=== PATIENT | female | born 1990 | race Caucasian/White ===

== ENCOUNTER 2021-08-30 08:59 | Emergency (ER) | payer BC ==
[2021-08-30 09:03] VITALS: TEMP 98.1
[2021-08-30] MEDS ORDERED: SODIUM CHLORIDE 0.9% 1,000 ML IV STA (10:32)
[2021-08-30 11:10] LABS: Basophils % (A) 0 %; Eosinophils % (A) 1 %; HCT 40.2 % (34.0-46.0); HGB 13.7 gm/dL (11.4-16.0); Lymphocytes # (A) 1.1 k/uL (1.0-4.8); Lymphocytes % (A) 17 %; MCH 30.4 pg (25.0-35.0); MCHC 34.2 g/dL (31.0-37.0); Monocytes # (A) 0.3 k/uL (0-1.0); Monocytes % (A) 4 %; Neutrophils # (A) 4.8 k/uL (1.3-7.7); Neutrophils % (A) 76 %; Platelet Count 188 k/uL (150-450); RBC 4.52 m/uL (3.80-5.40); RDW 12.3 % (11.5-15.5); WBC 6.3 k/uL (3.8-10.6)
[2021-08-30 11:24] LABS: ALT 18 U/L (4-34); AST 23 U/L (14-36); African American GFR (CKD) >90 (>60 ml/min/1.73 sqM); Albumin 4.8 g/dL (3.5-5.0); Alkaline Phosphatase 46 U/L (38-126); Anion Gap 12 mmol/L; Blood Urea Nitrogen 15 mg/dL (7-17); Calcium 9.4 mg/dL (8.4-10.2); Carbon Dioxide 23 mmol/L (22-30); Chloride 103 mmol/L (98-107); Glucose 93 mg/dL (74-99); Non-African American GFR(CKD) >90 (>60 ml/min/1.73 sqM); Potassium 4.2 mmol/L (3.5-5.1); Sodium 138 mmol/L (137-145); Total Bilirubin 0.8 mg/dL (0.2-1.3); Total Protein 7.6 g/dL (6.3-8.2)
[2021-08-30 11:32] LABS: Prothrombin Time 10.6 sec (9.0-12.0)
[2021-08-30 12:22] LABS: Appearance,Urine Clear (Clear); Bilirubin,Urine Negative (Negative); Blood,Urine Negative (Negative); Color,Urine Light Yellow; Glucose,Urine (UA) Negative (Negative); Ketones,Urine 1+ (Negative); Leukocyte Esterase,Urine Negative (Negative); Nitrite,Urine Negative (Negative); Protein,Urine Negative (Negative); Specific Gravity,Urine 1.009 (1.001-1.035); Urobilinogen,Urine <2.0 mg/dL (<2.0)
--- NOTE | 2021-08-30 12:27 | ED ---
General Adult HPI - General Chief complaint: Neuro Symptoms/Deficit Stated complaint: Numbness, blurred vision Time Seen by Provider: 08/30/21 10:21 Source: patient Mode of arrival: wheelchair Limitations: no limitations - History of Present Illness Initial comments: Patient is a 31-year-old female presenting with chief complaint of blurred vision, and numbness to the lips and left arm. Patient states that about 8:30 this morning she had centralized vision blurriness that lasted for about 25 minutes. After the vision blurriness subsided she began having perioral numbness and left arm numbness. Patient states it has been gradually improving and at the time of examination normal sensation has returned. Patient states that her family is a history of MS. She took a test at home yesterday which was negative. Patient states that she removed a tick from her foot 3 days ago, she states it was attached for less than 24 hours. She denies any chest pain, shortness of breath, fever, chills, nausea, vomiting, dizziness, headache injury, new medications/food/products, recent illness, rash, body aches, URI like symptoms, abdominal pain, diarrhea, hematochezia, dysuria, hematuria, urgency, frequency. - Related Data Home Medications Medication Instructions Recorded Confirmed No Known Home Medications 08/30/21 08/30/21 Allergies Allergy/AdvReac Type Severity Reaction Status Date / Time No Known Allergies Allergy Verified 08/30/21 13:20 Review of Systems ROS Statement: Those systems with pertinent positive or pertinent negative responses have been documented in the HPI. ROS Other: All systems not noted in ROS Statement are negative. Past Medical History Past Medical History: No Reported History History of Any Multi-Drug Resistant Organisms: None Reported Past Surgical History: No Surgical Hx Reported Past Psychological History: No Psychological Hx Reported Smoking Status: Never smoker Past Alcohol Use History: Occasional Past Drug Use History: None Reported General Exam Limitations: no limitations General appearance: alert, in no apparent distress Head exam: Present: atraumatic, normocephalic, normal inspection Eye exam: Present: normal appearance, PERRL, EOMI. Absent: scleral icterus, periorbital swelling Neck exam: Present: normal inspection Respiratory exam: Present: normal lung sounds bilaterally. Absent: respiratory distress, wheezes, rales, rhonchi, stridor Cardiovascular Exam: Present: regular rate, normal rhythm, normal heart sounds. Absent: systolic murmur, diastolic murmur, rubs, gallop, clicks GI/Abdominal exam: Present: soft. Absent: distended, tenderness, guarding, rebound, rigid Extremities exam: Present: normal inspection, full ROM. Absent: tenderness, pedal edema Neurological exam: Present: alert, oriented X3, CN II-XII intact Expanded Patient oriented to: Present: person, place, time Speech: Present: fluid speech Cranial nerves: EOM's Intact: Normal, Tongue Deviation: Normal, Facial Sensation: Normal Cerebellar function: Finger to Nose: Normal, Heel to Woody: Normal Sensory exam: Upper Extremity Light Touch: Normal, Lower Extremity Light Touch: Normal Motor strength exam: RUE: 5, LUE: 5, RLE: 5, LLE: 5 Eye Response: (4) open spontaneously Motor Response: (6) obeys commands Verbal Response: (5) oriented [place] Total: 15 Psychiatric exam: Present: normal affect, normal mood Skin exam: Present: warm, dry, intact, normal color. Absent: rash Course Vital Signs 08/30/21 08/30/21 08/30/21 09:00 12:45 14:06 Temperature 98.1 F Pulse Rate 77 66 68 Respiratory 14 18 18 Rate Blood Pressure 139/88 130/75 111/83 O2 Sat by Pulse 100 98 98 Oximetry Medical Decision Making - Medical Decision Making Patient is a 31-year-old female presenting with chief complaint of blurry vision and lip and hand numbness. Patient states that at about 8:30 this morning, she had a 30 minute episode of centralize vision blurriness, this was followed by a period of lip and right arm and hand numbness. Symptoms have completely resolved at this time. On examination there are no focal neurological deficits. Lab work is grossly unremarkable. CT of the brain without contrast shows no acute intracranial abnormality or gross space occupying lesion. On reassessment patient states that symptoms have not returned, she is resting comfortably. She appears stable for discharge with outpatient follow-up at this time. Follow-up with PCP in one to 2 days. Report back to ER with any new or worsening symptoms. Discussed return parameters answered all questions. Patient conveyed verbal understanding and agreed to the plan. I discussed this case with my attending Dr. Felipe. - Lab Data Result diagrams: 08/30/21 10:40 08/30/21 10:40 Lab Results 08/30/21 08/30/21 08/30/21 Range/Units 10:40 10:40 10:40 WBC 6.3 (3.8-10.6) k/uL RBC 4.52 (3.80-5.40) m/uL Hgb 13.7 (11.4-16.0) gm/dL Hct 40.2 (34.0-46.0) % MCV 89.0 (80.0-100.0) fL MCH 30.4 (25.0-35.0) pg MCHC 34.2 (31.0-37.0) g/dL RDW 12.3 (11.5-15.5) % Plt Count 188 (150-450) k/uL MPV 9.0 Neutrophils % 76 % Lymphocytes % 17 % Monocytes % 4 % Eosinophils % 1 % Basophils % 0 % Neutrophils # 4.8 (1.3-7.7) k/uL Lymphocytes # 1.1 (1.0-4.8) k/uL Monocytes # 0.3 (0-1.0) k/uL Eosinophils # 0.0 (0-0.7) k/uL Basophils # 0.0 (0-0.2) k/uL PT 10.6 (9.0-12.0) sec INR 1.0 (<1.2) APTT 26.0 (22.0-30.0) sec Sodium 138 (137-145) mmol/L Potassium 4.2 (3.5-5.1) mmol/L Chloride 103 (98-107) mmol/L Carbon Dioxide 23 (22-30) mmol/L Anion Gap 12 mmol/L BUN 15 (7-17) mg/dL Creatinine 0.65 (0.52-1.04) mg/dL Est GFR (CKD-EPI)AfAm >90 (>60 ml/min/1.73 sqM) Est GFR (CKD-EPI)NonAf >90 (>60 ml/min/1.73 sqM) Glucose 93 (74-99) mg/dL Calcium 9.4 (8.4-10.2) mg/dL Total Bilirubin 0.8 (0.2-1.3) mg/dL AST 23 (14-36) U/L ALT 18 (4-34) U/L Alkaline Phosphatase 46 (38-126) U/L Troponin I (0.000-0.034) ng/mL Total Protein 7.6 (6.3-8.2) g/dL Albumin 4.8 (3.5-5.0) g/dL Urine Color Urine Appearance (Clear) Urine pH (5.0-8.0) Ur Specific [place] (1.001-1.035) Urine Protein (Negative) Urine Glucose (UA) (Negative) Urine Ketones (Negative) Urine Blood (Negative) Urine Nitrite (Negative) Urine Bilirubin (Negative) Urine Urobilinogen (<2.0) mg/dL Ur Leukocyte Esterase (Negative) Urine HCG, Qual (Not Detectd) 08/30/21 08/30/21 08/30/21 Range/Units 10:40 10:40 10:40 WBC (3.8-10.6) k/uL RBC (3.80-5.40) m/uL Hgb (11.4-16.0) gm/dL Hct (34.0-46.0) % MCV (80.0-100.0) fL MCH (25.0-35.0) pg MCHC (31.0-37.0) g/dL RDW (11.5-15.5) % Plt Count (150-450) k/uL MPV Neutrophils % % Lymphocytes % % Monocytes % % Eosinophils % % Basophils % % Neutrophils # (1.3-7.7) k/uL Lymphocytes # (1.0-4.8) k/uL Monocytes # (0-1.0) k/uL Eosinophils # (0-0.7) k/uL Basophils # (0-0.2) k/uL PT (9.0-12.0) sec INR (<1.2) APTT (22.0-30.0) sec Sodium (137-145) mmol/L Potassium (3.5-5.1) mmol/L Chloride (98-107) mmol/L Carbon Dioxide (22-30) mmol/L Anion Gap mmol/L BUN (7-17) mg/dL Creatinine (0.52-1.04) mg/dL Est GFR (CKD-EPI)AfAm (>60 ml/min/1.73 sqM) Est GFR (CKD-EPI)NonAf (>60 ml/min/1.73 sqM) Glucose (74-99) mg/dL Calcium (8.4-10.2) mg/dL Total Bilirubin (0.2-1.3) mg/dL AST (14-36) U/L ALT (4-34) U/L Alkaline Phosphatase (38-126) U/L Troponin I <0.012 (0.000-0.034) ng/mL Total Protein (6.3-8.2) g/dL Albumin (3.5-5.0) g/dL Urine Color Light Yellow Urine Appearance Clear (Clear) Urine pH 6.0 (5.0-8.0) Ur Specific [place] 1.009 (1.001-1.035) Urine Protein Negative (Negative) Urine Glucose (UA) Negative (Negative) Urine Ketones 1+ H (Negative) Urine Blood Negative (Negative) Urine Nitrite Negative (Negative) Urine Bilirubin Negative (Negative) Urine Urobilinogen <2.0 (<2.0) mg/dL Ur Leukocyte Esterase Negative (Negative) Urine HCG, Qual Not Detected (Not Detectd) Disposition Clinical Impression: Visual blurriness, Paresthesia Disposition: HOME SELF-CARE Condition: Good Instructions (If sedation given, give patient instructions): Paresthesia (ED), Blurred Vision (ED) Additional Instructions: Follow-up with PCP in one to 2 days. Report back to ER with any new or worsening symptoms. Is patient prescribed a controlled substance at d/c from ED?: No Referrals: Jer Dunlap DO [Primary Care Provider] - 1-2 days Time of Disposition: 13:51
[2021-08-30 12:46] VITALS: RESP 18
--- NOTE | 2021-08-30 13:03 | CT ---
EXAMINATION TYPE: CT brain wo con DATE OF EXAM: 08/30/2021 COMPARISON: None available HISTORY: Vision Changes CT DLP: 1055.4 mGycm Automated exposure control for dose reduction was used. TECHNIQUE: CT scan of the brain is performed without IV contrast administration. FINDINGS: No acute intracranial hemorrhage. No gross acute cortical infarct. No midline shift, herniation or ve ntriculomegaly. Unremarkable pineda-white matter differentiation, basal cisterns, sella and CP angles. No gross space-o ccupying lesion, vasogenic edema or mass effect. Unremarkable orbits. Clear visualized paranasal sinuses and mastoid air cells. Unremarkable calvarial bones. IMPRESSION: No acute intracranial abnormality or gross space-occupying lesion by this nonenhanced CT scan. Further elective MRI assessment can be considered if clinically required.
[2021-08-30 14:07] VITALS: BP 111/83; PULSE 68
== END 2021-08-30 14:15 | disposition home or self-care (01) ==
LOC: EC 08:59
DX: H53.8 Other visual disturbances (principal); R20.2 Paresthesia of skin
CPT/HCPCS: 36415; 70450; 80053; 81003; 81025; 84484; 85025; 85610; 85730; 93005

== ENCOUNTER → 2021-11-10 | Outpatient (CLI) | payer BC ==
--- NOTE | 2021-11-10 15:52 | MR ---
EXAMINATION TYPE: MR brain wo con DATE OF EXAM: 11/10/2021 COMPARISON: None HISTORY: Blurred vision, left hand/lip numbness, headache. Technique: Multiecho multiplanar images the brain were obtained without contrast. Findings on the T1-weighted sagittal images midline structures including the craniovertebral junction relationships are normal. The ventricles, basal cisterns and sulci over the convexities are within normal limits and there is n o mass effect or shift of the midline structures No abnormal signal intensity is seen throughout the brain parenchyma. On the diffusion-weighted images there is no acute ischemic event or diffusion restriction. The posterior fossa including the brainstem, fourth ventricle and cerebellar pontine angles appear no rmal. The intraorbital contents appear normal and symmetric. There is an air-fluid level in the right maxillary sinus indicating acute sinusitis. The mastoid air cells are well aerated. IMPRESSION: 1. No significant abnormality seen within the brain. 2. Findings consistent with acute right maxillary sinusitis.
== END | disposition home or self-care (01) ==
LOC: RADMRIMAIN 13:25
PROVIDERS: ATTEND Physician Assistant
DX: H53.8 Other visual disturbances (principal); G43.109 Migraine with aura, not intractable, without status migrainosus; R20.0 Anesthesia of skin
CPT/HCPCS: 70551

== ENCOUNTER 2022-08-02 06:15 | Inpatient (IN) | payer BC ==
[2022-08-02] MEDS ORDERED: TRANEXAMIC ACID IN NACL,ISO-OS 1,000 MG in EMPTY BAG 1 BAG IV PRN (06:34)
[2022-08-02] MEDS ORDERED: TERBUTALINE 1 MG/ML VIAL SQ PRN (06:34)
[2022-08-02] MEDS ORDERED: CARBOPROST TROMETHAMINE 250 MCG/ML 1 ML AMP IM PRN (06:34)
[2022-08-02] MEDS ORDERED: OXYTOCIN 10 UNIT/ML 1 ML VIAL IM PRN (06:34)
[2022-08-02] MEDS ORDERED: LIDOCAINE 0.5% (PF) 5 MG/ML (50 ML SDV) SQ PRN (06:34)
[2022-08-02] MEDS ORDERED: miSOPROStoL 200 MCG TAB PO PRN (06:34)
[2022-08-02] MEDS ORDERED: METHYLERGONOVINE 0.2 MG/ML 1 ML AMP IM PRN (06:34)
[2022-08-02 06:43] LABS: Basophils % (A) 0 %; Eosinophils # (A) 0.1 k/uL (0-0.7); Eosinophils % (A) 1 %; HCT 36.4 % (34.0-46.0); HGB 12.7 gm/dL (11.4-16.0); Lymphocytes # (A) 1.3 k/uL (1.0-4.8); Lymphocytes % (A) 15 %; MCH 30.1 pg (25.0-35.0); MCHC 34.8 g/dL (31.0-37.0); MCV 86.5 fL (80.0-100.0); Mean Platelet Volume 9.7; Monocytes # (A) 0.5 k/uL (0-1.0); Monocytes % (A) 6 %; Neutrophils # (A) 6.5 k/uL (1.3-7.7); Neutrophils % (A) 76 %; Platelet Count 137 k/uL (150-450); RBC 4.21 m/uL (3.80-5.40); RDW 12.4 % (11.5-15.5); WBC 8.6 k/uL (3.8-10.6)
[2022-08-02] MEDS: LACTATED RINGERS 1,000 ML IV SCH ×2 (06:45→15:23)
[2022-08-02] MEDS ORDERED: OXYTOCIN 30 UNITS/500 ML NS 30 UNIT in SALINE 1 500ML.BAG IV SCH ×2 (06:45→13:00)
[2022-08-02] MEDS ORDERED: BUTORPHANOL 1 MG/ML 1 ML VIAL IV PRN (09:07)
--- NOTE | 2022-08-02 09:12 | P.HPOB ---
History of Present Illness H&P Date: 08/02/22 Chief Complaint: 39 and one sevenths weeks, elective induction the patient is a 32-year-old 3 para 2 scissors or 2 admitted at 39 and one sevenths weeks as determined by last Mester. And confirmed by 8 week ultrasound. She is admitted for elective induction of labor secondary to history of large babies and suspected macrosomia with this . Her has otherwise been uncomplicated though she is Rh- and received RhoGAM at 28 weeks. On labor and delivery, all signs reassuring with a category 1 heart rate tracing. Group B strep status is negative. Obstetrical history: 3 para 2001 with 2 previous normal spontaneous vaginal deliveries. Current statistics are listed in history of present illness. EDC of 08/08/2022 was established by last menstrual period and confirmed by 8 week ultrasound. Laboratory workup demonstrates a blood type of B- with a negative antibody screen. Rubella status is immune. The remainder of the laboratory workup was within normal limits. One hour Glucola was normal and group B strep status is negative. Gynecologic history: Unremarkable with no history of any infections to include STDs. Review of Systems review of systems is confined to history of present illness. Past Medical History Past Medical History: No Reported History History of Any Multi-Drug Resistant Organisms: None Reported Past Surgical History: No Surgical Hx Reported Past Psychological History: No Psychological Hx Reported Smoking Status: Never smoker Past Alcohol Use History: None Reported, Occasional Past Drug Use History: None Reported Medications and Allergies Home Medications Medication Instructions Recorded Confirmed Type Ferrous Sulfate [Iron] 325 mg PO 08/02/22 History Vit No.179/Iron/Folic 1 each PO 08/02/22 History [ Tablet] Allergies Allergy/AdvReac Type Severity Reaction Status Date / Time No Known Allergies Allergy Verified 08/02/22 06:32 Exam Vital Signs Temp Pulse Resp BP Pulse Ox 08/02/22 06:32 97.8 F 87 15 122/72 100 Intake and Output 08/01/22 08/02/22 08/02/22 22:59 06:59 14:59 Other: Weight 94.801 kg in general, this is a well-developed, well-nourished white female in no acute distress. Her heart has a regular rhythm and rate without murmur. Her lungs clear to auscultation bilaterally in all lucio. Her abdomen is gravid, nondistended, has normal active bowel sounds, is soft, nontender, and without any palpable masses aside from uterine fundus. Her extremities without any cyanosis, clubbing, or edema and are nontender to palpation bilaterally. Digital cervical examination demonstrates her surgery 2+ centimeters dilated, 50% effaced, the vertex in presentation at -2-3 station. Artificial rupture of membranes is carried out demonstrating a moderate amount of clear fluid. Results Result Diagrams: 08/02/22 06:30 Abnormal Lab Results - Last 24 Hours (Table) 08/02/22 Range/Units 06:30 Plt Count 137 L (150-450) k/uL Assessment and Plan (1) Term Current Visit: Yes Status: Acute Code(s): Z34.90 - ENCNTR FOR SUPRVSN OF NORMAL , UNSP, UNSP TRIMESTER SNOMED Code(s): 61838569 Plan: the patient is admitted for induction of labor. Pitocin has been started and she has undergone artificial rupture of membranes. She will have close maternal and surveillance and expectant management will be practiced. She is declining epidural analgesia at this time but may choose IV pain medication. I would anticipate normal spontaneous vaginal delivery later today.
[2022-08-02] MEDS ORDERED: BUTORPHANOL 2 MG/ML 1 ML VIAL IV PRN (10:44)
[2022-08-02] MEDS ORDERED: HYDROCORTISONE 2.5% RECTAL CREAM 30 GM TUBE RECTAL PRN (12:53)
[2022-08-02] MEDS ORDERED: ZOLPIDEM 5 MG TAB PO PRN (12:53)
[2022-08-02] MEDS ORDERED: diphenhydrAMINE 25 MG CAP PO PRN (12:53)
[2022-08-02] MEDS ORDERED: HYDROcodone/APAP 7.5-325MG 1 EACH TAB PO PRN (12:53)
[2022-08-02] MEDS ORDERED: HYDROcodone/APAP 5-325MG 1 EACH TAB PO PRN (12:53)
[2022-08-02] MEDS ORDERED: LANOLIN CREAM 5 GM TUBE TOPICAL PRN (12:53)
[2022-08-02] MEDS ORDERED: BENZOCAINE/MENTHOL SPRAY 1 GM/SPRAY AEROSOL TOPICAL PRN (12:53)
[2022-08-02] MEDS ORDERED: ACETAMINOPHEN TAB 325 MG TAB PO PRN (12:53)
[2022-08-02] MEDS ORDERED: diphenhydrAMINE 50 MG CAP PO PRN (12:53)
[2022-08-02] MEDS ORDERED: SIMETHICONE 80 MG CHEWABLE PO PRN (12:53)
[2022-08-02] MEDS ORDERED: diphenhydrAMINE 50 MG/ML 1 ML VIAL IVP PRN ×2 (12:53)
--- NOTE | 2022-08-02 12:56 | P.PROBDLV ---
Vaginal Delivery Note - . Vaginal Delivery Note: the patient is a 32-year-old 3 para 2 scissors or 2 admitted at 39 and one sevenths weeks by good dating parameters perches admitted for an elective induction secondary to suspected macrosomia with a history of macrosomic infants in the past. Her was otherwise entirely uncomplicated. She is Rh- and received RhoGAM at 28 weeks. On labor and delivery, all signs were reassuring with a category 1 heart rate tracing. Group B strep status is negative. Pitocin augmentation was started and she underwent artificial rupture of membranes for clear fluid. She made fairly quick progress through both the latent and active phase of labor to complete and then pushed over the course of approximately 2-3 contractions to a normal spontaneous vaginal delivery of a viable 9 lbs. 15 oz. baby boy with Apgars of 9 at 1 minute and 9 at 5 minutes d elivered in the direct occiput anterior position. The placenta was delivered spontaneously, intact, and grossly normal with a grossly normal, centrally inserted three-vessel cord. There were no lacerations of the perineum, vagina, or cervix. Estimated blood loss for the case is approximately 100 mL. There were no complications. All sponge, instrument, and needle counts were correct. Both mother and infant are resting comfortably in recovery.
[2022-08-02] MEDS: IBUPROFEN 600 MG TAB PO PRN ×2 (16:42→22:55)
[2022-08-02] MEDS: SENNOSIDES-DOCUSATE SODIUM 1 EACH TAB PO SCH (19:39)
[2022-08-03] MEDS: IBUPROFEN 600 MG TAB PO PRN ×2 (04:47→11:27)
[2022-08-03] MEDS ORDERED: Rhogam IMMUNE GLOBULIN 1,500 UNIT/1 ML IM ONE (08:22)
[2022-08-03 08:39] VITALS: BP 129/80; PULSE 99; RESP 14; TEMP 98.1
[2022-08-03] MEDS: SENNOSIDES-DOCUSATE SODIUM 1 EACH TAB PO SCH (08:40)
[2022-08-03 09:57] LABS: Basophils % (A) 0 %; Eosinophils % (A) 0 %; HCT 34.5 % (34.0-46.0); HGB 11.8 gm/dL (11.4-16.0); Lymphocytes # (A) 1.1 k/uL (1.0-4.8); Lymphocytes % (A) 13 %; MCH 30.1 pg (25.0-35.0); MCHC 34.2 g/dL (31.0-37.0); MCV 88.2 fL (80.0-100.0); Mean Platelet Volume 10.1; Monocytes # (A) 0.4 k/uL (0-1.0); Monocytes % (A) 5 %; Neutrophils # (A) 6.8 k/uL (1.3-7.7); Neutrophils % (A) 80 %; Platelet Count 129 k/uL (150-450); RBC 3.91 m/uL (3.80-5.40); RDW 12.7 % (11.5-15.5); WBC 8.4 k/uL (3.8-10.6)
--- NOTE | 2022-08-03 10:40 | P.DS ---
Providers Date of admission: 08/02/22 06:15 Expected date of discharge: 08/03/22 Attending physician: Kenneth Estrada Primary care physician: Stated None - Discharge Diagnosis(es) (1) Term Current Visit: Yes Status: Acute Hospital Course: the patient is a 32-year-old 3 para 2001 admitted at 39 and one sevenths weeks by good dating parameters. She is admitted for elective induction of labor with all signs reassuring, category 1 heart rate tracing. Her was uncomplicated. She is Rh- and received RhoGAM at 28 weeks. Group B strep status is negative. On labor and delivery, she had Pitocin started followed by artificial rupture of membranes for clear fluid. She made fairly quick progress through both the latent and active phase of labor to complete after which time she pushed quickly to a normal spontaneous vaginal delivery of a viable 9 lbs. 15 oz. baby boy with Apgars of 9 at 1 minute and 9 at 5 minutes. Her course was unremarkable with vital signs being stable and her temperature was afebrile throughout. She was deemed stable for discharge on day #1 and was discharged home to follow-up in the office in 6 weeks' time routinely. Discharge instructions included calling for any significantly increased bleeding or foul-smelling lochia, significantly increased fever or abdominal pain, perineal complaints, breast complaints, or anything else that concerned her. She was additionally instructed to have nothing in the vagina for at least 6 weeks time to include intercourse. She understood her instructions and agrees to follow up as noted above. Discharge medications included continued vitamins as she has opted to breast-feed. She additionally was to take [id number] analgesic pain medications as needed. Maternal blood type is B- and rubella status is immune. Procedures: #1. Pitocin induction #2. Artificial rupture of membranes #3. Normal spontaneous vaginal delivery Patient Condition at Discharge: Stable Plan - Discharge Summary New Discharge Prescriptions: No Action Vit No.179/Iron/Folic [ Tablet] 1 each PO Ferrous Sulfate [Iron] 325 mg PO Discharge Medication List Ferrous Sulfate [Iron] 325 mg PO 08/02/22 [History] Vit No.179/Iron/Folic [ Tablet] 1 each PO 08/02/22 [History] Follow up Appointment(s)/Referral(s): Kenneth Estrada MD [STAFF PHYSICIAN] - 6 Weeks Discharge Disposition: HOME SELF-CARE
== END 2022-08-03 13:23 | disposition home or self-care (01) | DRG 807 ==
LOC: 4FBP 06:15
PROVIDERS: ADMIT Obstetrics & Gynecology; ATTEND Obstetrics & Gynecology
PROC: 3E033VJ Introduction of Other Hormone into Peripheral Vein, Percutaneous Approach (ICD-10-PCS; principal; 2022-08-02)
PROC: 10E0XZZ Delivery of Products of Conception, External Approach (ICD-10-PCS; principal; 2022-08-02)
PROC: 10907ZC Drainage of Amniotic Fluid, Therapeutic from Products of Conception, Via Natural or Artificial Opening (ICD-10-PCS; principal; 2022-08-02)
PROC: 3E0334Z Introduction of Serum, Toxoid and Vaccine into Peripheral Vein, Percutaneous Approach (ICD-10-PCS; principal; 2022-08-02)
DX: O36.63X0 Maternal care for excessive fetal growth, third trimester, not applicable or unspecified (principal); Z37.0 Single live birth; Z3A.39 39 weeks gestation of pregnancy; O26.899 Other specified pregnancy related conditions, unspecified trimester; Z67.21 Type B blood, Rh negative
CPT/HCPCS: 85025; 85461; 86850; 86900; 86901